=== PATIENT | male | born 2000 | race Caucasian/White ===

== ENCOUNTER 2024-05-07 21:08 | Emergency (ER) | payer OTHER ==
[~2024-05-07] VITALS: Ht 167.6 cm; Wt 66.0 kg
[2024-05-07 21:49] VITALS: BP 129/86; PULSE 102; RESP 16; TEMP 97.9; O2SAT 100
[2024-05-07] MEDS: KETOROLAC 15MG/ML VIAL IM ONE (22:40)
[2024-05-07] MEDS ORDERED: NAPR-1176 MT (22:55)
[2024-05-07] MEDS ORDERED: LIDO700A15 TP (22:55)
== END 2024-05-07 23:39 | disposition home or self-care (01) ==
LOC: ER 21:08
DX: M25.562 Pain in left knee (principal)
CPT/HCPCS: 99283; 73562; 96372; J1885